=== PATIENT | female | born 1955 | race Caucasian/White ===

== ENCOUNTER 2018-03-30 08:00 | Inpatient (IN) | payer BC ==
[2018-03-30] MEDS: CEFAZOLIN 2 GM/50 ML (PMX) 50 ML IVPB (06:00)
[~2018-03-30 08:00] MED LIST: ACETAMINOPHEN 1000 MG/100 ML IVPB; LACTATED RINGER'S 1,000 ML IV*; ROCURONIUM 50 MG INJ
[2018-03-30] MEDS ORDERED: DIPHENHYDRAMINE 50 MG INJ IV (13:00)
[2018-03-30] MEDS ORDERED: SURGIFOAM POWDER 1 GM KIT (13:00)
[2018-03-30] MEDS ORDERED: GELATIN SIZE 100 SPONGE (13:00)
[2018-03-30] MEDS ORDERED: ACETAMINOPHEN 325 MG TAB PO (13:00)
[2018-03-30] MEDS ORDERED: CYCLOBENZAPRINE 10 MG TAB PO (13:00)
[2018-03-30] MEDS ORDERED: DIPHENHYDRAMINE 25 MG CAP PO (13:00)
[2018-03-30] MEDS ORDERED: BISACODYL 10 MG SUPP PR (13:00)
[2018-03-30] MEDS ORDERED: NALOXONE (0.4 MG/ML) INJ IV (13:00)
[2018-03-30] MEDS ORDERED: BUPIVACAINE 0.25%/EPI (SDV) 30 ML INJ (13:00)
[2018-03-30] MEDS ORDERED: ONDANSETRON 4 MG INJ IV (13:00)
[2018-03-30] MEDS ORDERED: HYDROmorphONE 0.5 MG/0.5 ML SYG IV (13:00)
[2018-03-30] MEDS ORDERED: CA CHLORIDE 10% 10 ML SYRINGE (13:01)
[2018-03-30] MEDS ORDERED: THROMBIN 5000 UNIT VIAL (13:01)
[2018-03-30] MEDS ORDERED: HEPARIN 1000 UNITS/ML 10 ML INJ (13:01)
[2018-03-30] MEDS ORDERED: MIDAZOLAM 1 MG/ML 2 ML INJ (13:26)
[2018-03-30] MEDS ORDERED: ROCURONIUM 50 MG INJ (13:37)
[2018-03-30] MEDS ORDERED: PROPOFOL 20 ML (13:37)
[2018-03-30] MEDS ORDERED: HYDROmorphONE 2 MG/ML SYG (13:37)
[2018-03-30] MEDS ORDERED: CEFAZOLIN 1 GM INJ (13:37)
[2018-03-30] MEDS ORDERED: DEXAMETHASONE 4 MG/ML 1 ML INJ (14:05)
[2018-03-30] MEDS ORDERED: ONDANSETRON 4 MG INJ (14:05)
[2018-03-30] MEDS ORDERED: METOCLOPRAMIDE 10 MG INJ (14:05)
[2018-03-30] MEDS ORDERED: PHENYLephrine (100 MCG/ML) 5ML SYG (14:17)
[2018-03-30] MEDS ORDERED: D5W-0.45 NACL + KCL 20 MEQ 1,000 ML IV (15:00)
[2018-03-30] MEDS ORDERED: GLYCOPYRROLATE 0.4 MG INJ (15:20)
[2018-03-30] MEDS ORDERED: NEOSTIGMINE 3 MG/3 ML SYRINGE (15:20)
[2018-03-30] MEDS: HYDROmorphONE 0.2 MG/ML PCA IV (16:16)
[2018-03-30] MEDS ORDERED: CEFAZOLIN 1 GM/50 ML (PMX) 50 ML IVPB (21:00)
[2018-03-30] MEDS ORDERED: DOCUSATE SODIUM 100 MG CAP PO (21:00)
[2018-03-31] MEDS ORDERED: PANTOPRAZOLE 40 MG INJ IV (06:00)
[2018-03-31] MEDS ORDERED: OXYCODONE/ACETAMINOPHEN (10/325) TAB PO ×2 (10:00)
== END 2018-03-30 17:45 | disposition home or self-care (01) | DRG 520 ==
LOC: REC 08:00
PROC: 0SB40ZZ Excision of Lumbosacral Disc, Open Approach (ICD-10-PCS; principal; 2018-03-30)
PROC: 4A11X4G Monitoring of Peripheral Nervous Electrical Activity, Intraoperative, External Approach (ICD-10-PCS; 2018-03-30)
DX: M51.17 Intervertebral disc disorders with radiculopathy, lumbosacral region (principal)

== ENCOUNTER 2018-03-30 11:01 | Inpatient (IN) | payer BC ==
[2018-03-30] MEDS: SOD CHLORIDE 0.9% 1,000 ML IV (13:00)
[2018-03-30] MEDS ORDERED: EPHEDrine SULFATE 50 MG/5 ML SYG IV (13:30)
[2018-03-30] MEDS ORDERED: ONDANSETRON 4 MG INJ IV ×2 (13:30→17:30)
[2018-03-30] MEDS ORDERED: OXYCODONE/ACETAMINOPHEN (5/325) TAB PO ×3 (13:30→17:30)
[2018-03-30] MEDS ORDERED: FENTAnyl 50 MCG/ML VIAL IV ×3 (13:30)
[2018-03-30] MEDS ORDERED: MEPERIDINE 25 MG INJ IV (13:30)
[2018-03-30] MEDS ORDERED: HYDROmorphONE 1 MG/5 ML IV SYRINGE IV ×3 (13:30)
[2018-03-30] MEDS ORDERED: ALBUMIN HUMAN 5% 250 ML IV (13:30)
[2018-03-30] MEDS ORDERED: hydrALAzine 20 MG INJ IV (13:30)
[2018-03-30] MEDS ORDERED: LABETALOL HCL 20MG INJ IV (13:30)
[2018-03-30] MEDS ORDERED: METOCLOPRAMIDE 10 MG INJ IV (13:30)
[2018-03-30] MEDS ORDERED: DIPHENHYDRAMINE 50 MG INJ IV ×2 (13:30→17:30)
[2018-03-30] MEDS ORDERED: ACETAMINOPHEN 1000MG/100ML IV 100 ML (14:14)
[2018-03-30] MEDS: BUPIVACAINE 0.25%/EPI (SDV) 30 ML INJ INJ (14:36)
[2018-03-30] MEDS: SURGIFOAM POWDER 1 GM KIT MM (14:37)
[2018-03-30] MEDS: THROMBIN 5000 UNIT VIAL TOP ×2 (14:38→15:00)
[2018-03-30] MEDS: HEPARIN 1000 UNITS/ML 10 ML INJ IRR (14:38)
[2018-03-30] MEDS: POLYMYXIN/BACITRACIN 1L IRRIG IRR (14:39)
[2018-03-30] MEDS: CA CHLORIDE 10% 10 ML SYRINGE IV* (14:59)
[2018-03-30] MEDS ORDERED: HYDROmorphONE 0.2 MG/ML PCA (16:14)
[2018-03-30] MEDS ORDERED: HYDROmorphONE 0.5 MG/0.5 ML SYG IV (17:30)
[2018-03-30] MEDS ORDERED: OXYCODONE/ACETAMINOPHEN (10/325) TAB PO ×2 (17:30)
[2018-03-30] MEDS ORDERED: NALOXONE (0.4 MG/ML) INJ IV (17:30)
[2018-03-30] MEDS ORDERED: ACETAMINOPHEN 325 MG TAB PO (17:30)
[2018-03-30] MEDS ORDERED: DIPHENHYDRAMINE 25 MG CAP PO (17:30)
[2018-03-30] MEDS ORDERED: BISACODYL 10 MG SUPP PR (17:30)
[2018-03-30] MEDS: HYDROmorphONE 0.2 MG/ML PCA IV (17:39)
[2018-03-30] MEDS: D5W-0.45 NACL + KCL 20 MEQ 1,000 ML IV (18:37)
[2018-03-30] MEDS: CEFAZOLIN 1 GM/50 ML (PMX) 50 ML IVPB (18:38)
[2018-03-30] MEDS: DOCUSATE SODIUM 100 MG CAP PO (20:17)
[2018-03-31] MEDS: CEFAZOLIN 1 GM/50 ML (PMX) 50 ML IVPB ×2 (02:16→09:11)
[2018-03-31] MEDS: D5W-0.45 NACL + KCL 20 MEQ 1,000 ML IV ×2 (03:05→05:20)
[2018-03-31] MEDS: PANTOPRAZOLE (EC) 40 MG TAB PO (05:19)
[2018-03-31] MEDS ORDERED: PANTOPRAZOLE 40 MG INJ IV (06:00)
[2018-03-31] MEDS: DOCUSATE SODIUM 100 MG CAP PO (09:10)
[2018-03-31] MEDS: MULTIVITAMINS THERAPEUTIC TAB PO (09:11)
[2018-03-31] MEDS: OXYCODONE/ACETAMINOPHEN (5/325) TAB PO (10:06)
== END 2018-03-31 17:15 | disposition home or self-care (01) | DRG 520 ==
LOC: FTE 11:01 → SDS 13:00 → REC 17:39 → MS1 18:00
PROVIDERS: Specialist
PROC: 0SB40ZZ Excision of Lumbosacral Disc, Open Approach (ICD-10-PCS; principal; 2018-03-30 13:40)
DX: M51.17 Intervertebral disc disorders with radiculopathy, lumbosacral region (principal); E78.00 Pure hypercholesterolemia, unspecified; M16.11 Unilateral primary osteoarthritis, right hip; E53.8 Deficiency of other specified B group vitamins; G89.29 Other chronic pain; Z88.0 Allergy status to penicillin
CPT/HCPCS: 72100; 82607; 86999; 88304; 97110; 97116; 97161; 99285-25